=== PATIENT | male | born 1960 | race Caucasian/White ===

== ENCOUNTER 2016-12-17 12:20 | Emergency (ER) | payer MEDICAID, OTHER ==
[~2016-12-17] VITALS: Ht 172.7 cm; Wt 70.0 kg
[2016-12-17 12:32] VITALS: BP 136/78; PULSE 84; RESP 20; TEMP 97.9; O2SAT 96
--- NOTE | 2016-12-17 13:09 | PD ---
Physical Exam Time Seen by Provider: 13:07 Narrative Patient presents for slip and fall at [employer] hitting his right shoulder. Denies head trauma or LOC. He c/o pain in the right shoulder and painful ROM. No medical conditions. No anticoagulation. VSS. Awaiting bed placement. Data Data Last Documented VS Vital Signs Date Time Temp Pulse Resp B/P Pulse Ox O2 Delivery O2 Flow Rate FiO2 12/17/16 12:32 97.9 84 20 136/78 96 Room Air MDM Supervised Visit with FAWN: Estella Thorne Dec 17, 2016 13:09
--- NOTE | 2016-12-17 14:27 | PD ---
HPI Chief Complaint: Injury Time Seen by Provider: 14:27 Travel History International Travel<30 days: No Contact w/Intl Traveler<30days: No Traveled to known affect area: No History of Present Illness HPI 55-year-old male patient presents to emergency department following a slip and fall at [employer]. Patient states he landed on his right shoulder. Is reporting right shoulder, neck, and low back pain. Patient states he did not strike his head or lose consciousness. Denies any focal deficits or weakness. Pain is exacerbated with movement or palpation of the anterior lateral right shoulder. No alterations in sensation. No other symptoms to report. [facility] Past Medical History Medical History: Denies Significant Hx Social History Alcohol Use: No Tobacco Use: No Substance Use: No Allergies-Medications (Allergen,Severity, Reaction): Coded Allergies: No Known Allergies (Unverified , 12/17/16) Reported Meds & Prescriptions Reported Meds & Active Scripts Active Robaxin (Methocarbamol) 500 Mg Tab 500 Mg PO TID PRN Ibuprofen 600 Mg Tab 600 Mg PO Q8HR PRN Review of Systems Except as stated in HPI: all other systems reviewed are Neg Physical Exam Narrative GENERAL: Well-nourished male patient, ambulatory no acute distress SKIN: Focused skin assessment warm/dry. HEAD: Atraumatic. Normocephalic. EYES: Pupils equal and round. No scleral icterus. No injection or drainage. ENT: No nasal bleeding or discharge. Mucous membranes pink and moist. NECK: Trachea midline. No JVD. An associated palpation lateral to the cervical spine, more on the right than left. CARDIOVASCULAR: Regular rate and rhythm. No murmur appreciated. RESPIRATORY: No accessory muscle use. Clear to auscultation. Breath sounds equal bilaterally. GASTROINTESTINAL: Abdomen soft, non-tender, nondistended. Hepatic and splenic margins not palpable. MUSCULOSKELETAL: No obvious deformities. No clubbing. No cyanosis. No edema. Tenderness also palpation in the lumbar paraspinous musculature on the right. No spinal tenderness. Patient is holding the right upper extremity in a sling across his abdomen. No deformity. Tenderness elicited palpation of the anterolateral right shoulder. Pulses are palpable. Cap refill within normal limits. NEUROLOGICAL: Awake and alert. No obvious cranial nerve deficits. Motor grossly within normal limits. Normal speech. PSYCHIATRIC: Appropriate mood and affect; insight and judgment normal. Data Data Last Documented VS Vital Signs Date Time Temp Pulse Resp B/P Pulse Ox O2 Delivery O2 Flow Rate FiO2 12/17/16 12:32 97.9 84 20 136/78 96 Room Air Orders Shoulder, Complete (>2vws) (12/17/16 13:09) Spine, Cervical - Ltd (Ap&Lat) (12/17/16 ) Spine, Lumbar - Ltd (Ap & Lat) (12/17/16 ) Ketorolac Inj (Toradol Inj) (12/17/16 15:15) MDM Medical Decision Making Medical Screen Exam Complete: Yes Emergency Medical Condition: Yes Medical Record Reviewed: Yes Differential Diagnosis Contusion versus sprain versus discogenic pain versus radiculopathy versus fracture Narrative Course 55-year-old male presents to department for evaluation following a slip and fall. No head trauma occurred. X-ray imaging of the right shoulder, low back, and cervical strain are all without acute abnormality. There are degenerative changes. Patient is counseled on care, encouraged to return to the emergency department with any acute worsening symptoms. Diagnosis Primary Impression: Shoulder contusion Qualified Code: S40.011A - Contusion of right shoulder, initial encounter Additional Impressions: Low back strain Qualified Code: S39.012A - Low back strain, initial encounter Cervical strain Qualified Code: S16.1XXA - Cervical strain, initial encounter Referrals: Primary Care Physician Patient Instructions: Cervical Neck Strain Exercises (GEN), Contusion in Adults (ED), General Instructions, Low Back Strain (ED) Additional Instructions: Ice and/or warm moist heat may help to alleviate symptoms Follow-up with primary care provider Avoid activity that exacerbates pain Return immediately with any acute worsening of symptoms Med/Other Pt SpecificInfo: Prescription(s) given Scripts Methocarbamol (Robaxin)500 Mg [id number] Mg PO TID PRN (MUSCLE SPASM) #20 TAB Ref 0 Prov:Danielle Jose 12/17/16 Ibuprofen 600 Mg [id number] Mg PO Q8HR PRN (PAIN) #30 TAB Ref 0 Prov:Danielle Jose 12/17/16 Disposition: 01 DISCHARGE HOME Condition: Stable Danielle Jose Dec 17, 2016 14:27
--- NOTE | 2016-12-17 15:01 | RADRPT ---
EXAM DATE/TIME: 12/17/2016 13:49 [facility] COMPARISON: No previous studies available for comparison. INDICATIONS : Fall pain with swelling and loss of motion to shoulder. MEDICAL HISTORY : None. SURGICAL HISTORY : None. ENCOUNTER: Initial ACUITY: 1 day PAIN SCORE: 10/10 LOCATION: Right shoulder FINDINGS: Multiple view examination of the right shoulder demonstrates no evidence of fracture or dislocation. The glenohumeral and acromioclavicular joints are maintained. There is normal range of motion betwe en internal and external rotation. Bony mineralization is normal. CONCLUSION: 1. There is no evidence of acute fracture. Yanick Yi MD on December 17, 2016 at 14:59 Board Certified Radiologist. This report was verified electronically.
[2016-12-17] MEDS ORDERED: KETOROLAC TROMETHAMINE 60 MG/2 ML (IM) VIAL IM ONE (15:15)
--- NOTE | 2016-12-17 16:23 | RADRPT ---
EXAM DATE/TIME: 12/17/2016 15:41 [facility] COMPARISON: No previous studies available for comparison. INDICATIONS : Lower back pain, fall. MEDICAL HISTORY : None. SURGICAL HISTORY : Abdominal aortic stent ENCOUNTER: Initial ACUITY: 1 day PAIN SCORE: 8/10 LOCATION: Right lower back FINDINGS: Vascular stents are evident. There are mild degenerative changes at L2-3 and L5-S1. Degenerative changes are present in the facets . CONCLUSION: 1. Vascular stents. 2. Mild degenerative changes. Keegan Tucker MD FACR on December 17, 2016 at 16:18 Board Certified Radiologist. This report was verified electronically.
--- NOTE | 2016-12-17 16:29 | RADRPT ---
EXAM DATE/TIME: 12/17/2016 15:32 [facility] COMPARISON: No previous studies available for comparison. INDICATIONS : Neck pain, fall. MEDICAL HISTORY : None. SURGICAL HISTORY : None. ENCOUNTER: Initial ACUITY: 1 day PAIN SCORE: 5/10 LOCATION: Right side of neck FINDINGS: There are degenerative changes in the cervical spine with posterior osteophytosis at C3-4, C4-5, C5-6 , and to a lesser degree at C6-7. AP is unremarkable. Odontoid appears normal. Calcifications are s een in the left carotid. CONCLUSION: Degenerative changes. Fracture is not appreciated. Controlled flexion and extension films may be of benefit. Keegan Tucker MD FACR on December 17, 2016 at 15:46 Board Certified Radiologist. This report was verified electronically.
[2016-12-17] MEDS ORDERED: IBUP-232 PO (16:36)
[2016-12-17] MEDS ORDERED: ROBA500T PO (16:36)
== END 2016-12-17 17:02 | disposition home or self-care (01) ==
LOC: NEPB 12:20
DX: S40.011A Contusion of right shoulder, initial encounter (principal); S16.1XXA Strain of muscle, fascia and tendon at neck level, initial encounter; S39.012A Strain of muscle, fascia and tendon of lower back, initial encounter; W01.0XXA Fall on same level from slipping, tripping and stumbling without subsequent striking against object, initial encounter; Y92.512 Supermarket, store or market as the place of occurrence of the external cause
CPT/HCPCS: 72040; 72100; 73030; 96372; 99283; J1885